=== PATIENT | female | born 1985 | race Caucasian/White ===

== ENCOUNTER → 2020-05-13 | Outpatient (CLI) | payer OTHER ==
[~2020-05-13] MED LIST: ASCO500 PO; CEPH500 PO; DICLEGIS DR 101 EAC1 PO; HYDACE5 PO; METF500 PO; PENVK500 PO; PRENATAL TABLE1 EAC2 PO; Percocet 5-3251 EACH PO; RXHYDACE PO; SERT100 PO; THERA-D2000 UNIT PO
== END | disposition home or self-care (01) ==
LOC: LAB SHORT 16:29 → LAB 16:29
DX: R82.90 Unspecified abnormal findings in urine (principal)
CPT/HCPCS: 87086

== ENCOUNTER 2020-09-24 13:20 | Observation (INO) | payer OTHER ==
[~2020-09-24] VITALS: Ht 167.6 cm; Wt 130.0 kg
[2020-09-24 13:51] LABS: Source, Urine Clean Catch
[2020-09-24 14:12] LABS: Appearance, Urine Clear (Clear); Bilirubin, Urine Neg (Neg); Blood, Urine 5+ (Neg); Color, Urine Yellow (P-Yellow); Glucose Qualitative, Urine Neg (Neg); Ketones, Urine 4+ (Neg); Leukocyte Esterase, Urine 2+ (Neg); Nitrite, Urine Neg (Neg); Protein, Urine 1+ (Neg); Urobilinogen, Urine NORM (Normal)
[2020-09-24 14:21] LABS: Bacteria Mod /hpf; Red Blood Cells, Urine TNTC /hpf (0-2); Squamous Epithelial Cells Few /hpf (Few)
[2020-09-24 15:24] LABS: BASOPHILS ABSOLUTE AUTO 0.04 K/mm3 (0.00-0.23); BASOPHILS PERCENT AUTO 0 % (0-2); EOSINOPHILS ABSOLUTE AUTO 0.02 K/mm3 (0.00-0.68); EOSINOPHILS PERCENT AUTO 0 % (0-6); Hematocrit 36.4 % (33.0-51.0); Hemoglobin 12.3 g/dL (11.5-16.0); IMMATURE GRAN ABSOLUTE AUTO 0.06 K/mm3 (0.00-0.10); IMMATURE GRAN PERCENT AUTO 0 % (0-1); LYMPHOCYTES ABSOLUTE AUTO 1.61 K/mm3 (0.84-5.20); LYMPHOCYTES PERCENT AUTO 10 % (21-46); MONOCYTES ABSOLUTE AUTO 0.67 K/mm3 (0.16-1.47); MONOCYTES PERCENT AUTO 4 % (4-13); Mean Corpuscular HGB 30.1 pg (26.0-34.0); Mean Corpuscular HGB Conc 33.8 g/dL (31.5-36.5); Mean Corpuscular Volume 89 fL (80-100); Mean Platelet Volume 11.8 fL (9.1-12.4); NEUTROPHILS ABSOLUTE AUTO 13.75 K/mm3 (1.96-9.15); NEUTROPHILS PERCENT AUTO 85 % (41-73); Platelet Count 207 K/mm3 (150-400); RDW Coefficient Variation 12.8 % (11.7-14.2); RDW Standard Deviation 41.9 fL (35.1-46.3); Red Blood Cell Count 4.08 M/mm3 (3.80-5.20); White Blood Cell Count 16.15 K/mm3 (4.00-11.30)
[2020-09-24 15:48] LABS: Alanine Aminotransfer (ALT/SGP 53 U/L (12-78); Albumin, Blood 2.6 g/dL (3.4-5.0); Albumin/Globulin Ratio 0.6 (0.8-1.8); Alk Phos 93 U/L (50-136); Anion Gap 10 mmol/L (6-16); Aspartate Aminotrans (AST/SGOT 32 U/L (12-37); Bilirubin, Total 0.3 mg/dL (0.1-1.0); Blood Urea Nitrogen 9 mg/dL (8-24); CO2, Blood 21 mmol/L (21-32); Calcium, Blood 8.7 mg/dL (8.5-10.1); Chloride, Blood 105 mmol/L (98-108); Globulin, Blood 4.4 g/dL (2.2-4.0); Glomerular Filtration Rate >60 (60-); Glucose, Blood 143 mg/dL (70-99); Potassium, Blood 3.4 mmol/L (3.5-5.5); Sodium, Blood 136 mmol/L (136-145)
--- NOTE | 2020-09-25 10:25 | NUR ---
pt sleeping after receiving zofran then phenergan for persistent nausea, no emesis. Pt drank milk and had a couple bites of sausage for breakfast
--- NOTE | 2020-09-25 12:15 | NUR ---
INITIAL VISIT. PT IS ADMITTED TO [facility] AN OBSERVATION PATIENT. WAS ABLE TO HAVE SWEET SUCCESS VISIT IN PT'S ROOM. TALKED W/ PT ABOUT WHAT GESTATIONAL DIABETIES (GD) IS, HOW TO MANAGE GD WITH DIET, WHAT THE TARGET OF CBG IS FOR FASTING AND AFTER MEALS. TALKED WITH PT ABOUT THE IMPORTANCE OF MAINTAINING CBG IN TARGET RANGE AND THE EEFECTS OF HIGH BLOOD SUGARS ON , , AND . PT STATES SHE HAS HAD GD W/ EACH , FIRST SHE HAD TO TO USE INSULIN, SECOND WAS DIET CONTROLLED SHE HAD TO USE INSULIN, SECOND WAS DIET CONTROLLED. SCHEDULED A SECOND VISIT FOR 10-02-20 AT 1400. PT REPORTS FASTING CBG "HAS BEEN AROUND 120" AND AFTER MEALS HAS BEEN "ANYWHERE FROM 87-189". PT WAS GIVEN A LOG TO CHART ALL CBG AND WHAT SHE EATS DURING THE DAY. PT VERBALIZED UNDERSTANDING OF GD AND THE PLAN GOING FORWARD.
--- NOTE | 2020-09-25 12:30 | NUR ---
PATIENT SLEEPING SOUNDLY
--- NOTE | 2020-09-26 10:20 | NUR ---
kenneth solis in room with pt discussed plan to go to all oral medication and manage this at home. pt agreeable. scrips given for roxicodone, promethiazine, and zofran
--- NOTE | 2020-09-26 11:53 | NUR ---
at 1052 pt given discharge instructions, denies any further concerns or questions, vital and fht's all wnl
== END 2020-09-26 11:25 | disposition home or self-care (01) ==
LOC: OBS 13:20 → BC 13:20 → OBS 18:35 → BC 18:36
PROVIDERS: ADMIT Nurse Practitioner Obstetrics & Gynecology
DX: O26.833 Pregnancy related renal disease, third trimester (principal); N20.0 Calculus of kidney; O09.523 Supervision of elderly multigravida, third trimester; O24.415 Gestational diabetes mellitus in pregnancy, controlled by oral hypoglycemic drugs; O99.213 Obesity complicating pregnancy, third trimester; E66.01 Morbid (severe) obesity due to excess calories; Z3A.33 33 weeks gestation of pregnancy; Z87.442 Personal history of urinary calculi; Z79.84 Long term (current) use of oral hypoglycemic drugs; Z88.6 Allergy status to analgesic agent
CPT/HCPCS: 59025; 76770; 80053; 81001; 82947; 85025; 87086; 96365; 96366; 96372; 96375; 96376; 99214; A9270; G0108; J0696; J2405; J2550; J3010; J7120

== ENCOUNTER → 2020-10-22 | Outpatient (CLI) | payer OTHER | END | disposition home or self-care (01) | LOC: LAB 16:36 → LAB SHORT 16:36 | DX: Z34.83 Encounter for supervision of other normal pregnancy, third trimester (principal); Z3A.37 37 weeks gestation of pregnancy | CPT/HCPCS: 87081; 87150 ==

== ENCOUNTER 2020-11-06 10:35 | Inpatient (IN) | payer OTHER ==
[~2020-11-06] VITALS: Ht 167.6 cm; Wt 129.0 kg
[2020-11-06] MEDS ORDERED: OXYC5 PO (11:22)
[2020-11-06] MEDS ORDERED: OMEP20ER PO (11:22)
[2020-11-06] MEDS ORDERED: PROM12.5S PR (11:23)
[2020-11-06] MEDS ORDERED: ONDA4 PO (11:24)
[2020-11-06] MEDS ORDERED: GLYB2.5 PO (11:24)
[2020-11-06 11:34] LABS: BASOPHILS ABSOLUTE AUTO 0.03 K/mm3 (0.00-0.23); BASOPHILS PERCENT AUTO 0 % (0-2); EOSINOPHILS ABSOLUTE AUTO 0.09 K/mm3 (0.00-0.68); EOSINOPHILS PERCENT AUTO 1 % (0-6); Hematocrit 36.1 % (33.0-51.0); Hemoglobin 12.1 g/dL (11.5-16.0); IMMATURE GRAN ABSOLUTE AUTO 0.11 K/mm3 (0.00-0.10); IMMATURE GRAN PERCENT AUTO 1 % (0-1); LYMPHOCYTES ABSOLUTE AUTO 3.05 K/mm3 (0.84-5.20); LYMPHOCYTES PERCENT AUTO 21 % (21-46); MONOCYTES ABSOLUTE AUTO 0.82 K/mm3 (0.16-1.47); MONOCYTES PERCENT AUTO 6 % (4-13); Mean Corpuscular HGB 30.3 pg (26.0-34.0); Mean Corpuscular HGB Conc 33.5 g/dL (31.5-36.5); Mean Corpuscular Volume 90 fL (80-100); Mean Platelet Volume 11.8 fL (9.1-12.4); NEUTROPHILS ABSOLUTE AUTO 10.43 K/mm3 (1.96-9.15); NEUTROPHILS PERCENT AUTO 72 % (41-73); Platelet Count 182 K/mm3 (150-400); RDW Coefficient Variation 13.2 % (11.7-14.2); RDW Standard Deviation 43.3 fL (35.1-46.3); White Blood Cell Count 14.53 K/mm3 (4.00-11.30)
[2020-11-06 12:36] LABS: SARS-Cov-2 (COVID-19) PCR, MMC NEGATIVE (NEGATIVE)
--- NOTE | 2020-11-06 16:12 | NUR ---
11/06/20 1612 Johanna Pagan [id number] PT ARRIVED TO [facility] OR VIA BED WITH DUONG DRAINING CLEAR YELLOW URINE
[2020-11-06 16:30] LABS: PCO2 Cord - Arterial 100 mmHg (40-50); pH Cord - Arterial 6.99 (7.28-7.35)
[2020-11-06 16:36] LABS: PCO2 Cord - Venous 67.9 mmHg (40-50); PO2 Cord - Venous 22.2 mmHg (28-32); pH Umbilical Cord - Venous 7.12 (7.26-7.35)
[2020-11-07 06:24] LABS: BASOPHILS ABSOLUTE AUTO 0.02 K/mm3 (0.00-0.23); BASOPHILS PERCENT AUTO 0 % (0-2); EOSINOPHILS ABSOLUTE AUTO 0.06 K/mm3 (0.00-0.68); EOSINOPHILS PERCENT AUTO 0 % (0-6); Hematocrit 31.9 % (33.0-51.0); Hemoglobin 10.5 g/dL (11.5-16.0); IMMATURE GRAN ABSOLUTE AUTO 0.09 K/mm3 (0.00-0.10); IMMATURE GRAN PERCENT AUTO 1 % (0-1); LYMPHOCYTES ABSOLUTE AUTO 3.45 K/mm3 (0.84-5.20); LYMPHOCYTES PERCENT AUTO 23 % (21-46); MONOCYTES ABSOLUTE AUTO 1.07 K/mm3 (0.16-1.47); MONOCYTES PERCENT AUTO 7 % (4-13); Mean Corpuscular HGB 30.2 pg (26.0-34.0); Mean Corpuscular HGB Conc 32.9 g/dL (31.5-36.5); Mean Corpuscular Volume 92 fL (80-100); Mean Platelet Volume 11.5 fL (9.1-12.4); NEUTROPHILS ABSOLUTE AUTO 10.52 K/mm3 (1.96-9.15); NEUTROPHILS PERCENT AUTO 69 % (41-73); Platelet Count 171 K/mm3 (150-400); RDW Coefficient Variation 13.2 % (11.7-14.2); RDW Standard Deviation 43.9 fL (35.1-46.3); Red Blood Cell Count 3.48 M/mm3 (3.80-5.20); White Blood Cell Count 15.21 K/mm3 (4.00-11.30)
[2020-11-08] MEDS ORDERED: Percocet 5-3251 EACH PO (07:28)
[2020-11-08] MEDS ORDERED: IBUP800 PO (07:28)
--- NOTE | 2020-11-08 11:46 | NUR ---
EDUCATED PT THAT SHE NEEDS TO BE UP AND MOVING, AMBULATING AT LEAST IN ROOM, IF NOT IN HALLWAY. PT ALSO STATES SHE WANTS TO BE . PUMP OBTAINED AND SET UP FOR HER IN ROOM. EXPLAINED AND ANSWERED ALL QUESTIONS. PT DOES HAVE PUMP IN HUSBANDS CAR, WHO IS AT [facility] WITH NB.
--- NOTE | 2020-11-08 14:02 | NUR ---
PT PUMPED BOTH BREASTS WITH RESULT OF 50ML COLOSTRUM. COLOSTRUM OBTAINED AND PLACED IN STORAGE BAG WITH DATE AND TIME, INSTRUMENTS CLEANED. COLOSTRUM PLACED IN NURSERY FRIDGE BY OBYD WILCOX.
--- NOTE | 2020-11-08 16:48 | NUR ---
DISCHARGED TO HOME WITH VIA AMBULATION
--- NOTE | 2020-11-10 09:03 | NUR ---
PT SCHEDULED FOR PPFU, VIA PHONE. PT DID NOT ANSWER, LEFT MESSAGE ON VOICEMAIL.
== END 2020-11-08 16:43 | disposition home or self-care (01) | DRG 788 ==
LOC: OBS 10:35 → BC 10:35 → OBS 11:01 → BC 11:02
PROVIDERS: ADMIT Obstetrics & Gynecology
PROC: 10D00Z1 Extraction of Products of Conception, Low, Open Approach (ICD-10-PCS; principal; 2020-11-06 19:30)
PROC: 0U910ZZ Drainage of Left Ovary, Open Approach (ICD-10-PCS; 2020-11-06 19:30)
DX: O42.92 Full-term premature rupture of membranes, unspecified as to length of time between rupture and onset of labor (principal); Z37.0 Single live birth; O66.3 Obstructed labor due to other abnormalities of fetus; O34.83 Maternal care for other abnormalities of pelvic organs, third trimester; O24.429 Gestational diabetes mellitus in childbirth, unspecified control; N83.202 Unspecified ovarian cyst, left side; O76 Abnormality in fetal heart rate and rhythm complicating labor and delivery; Z3A.39 39 weeks gestation of pregnancy
CPT/HCPCS: 36415; 59025; 82803; 82947; 85025; 86850; 86900; 86901; 88307; 99214; A9270; J0690; J1885; J2405; J2590; J2765; J3010; J7120; U0004

== ENCOUNTER 2022-08-19 09:09 | Emergency (ER) | payer OTHER ==
[~2022-08-19] VITALS: Ht 167.6 cm; Wt 158.8 kg
[~2022-08-19 09:09] MED LIST changes: +GLYB2.5 PO; +IBUP800 PO; +OMEP20ER PO; +ONDA4 PO; +OXYC5 PO; +PROM12.5S PR
[2022-08-19 10:04] LABS: BASOPHILS ABSOLUTE AUTO 0.04 K/mm3 (0.00-0.23); BASOPHILS PERCENT AUTO 0 % (0-2); EOSINOPHILS ABSOLUTE AUTO 0.04 K/mm3 (0.00-0.68); EOSINOPHILS PERCENT AUTO 0 % (0-6); Hematocrit 43.1 % (33.0-51.0); Hemoglobin 14.7 g/dL (11.5-16.0); IMMATURE GRAN ABSOLUTE AUTO 0.05 K/mm3 (0.00-0.10); IMMATURE GRAN PERCENT AUTO 0 % (0-1); LYMPHOCYTES ABSOLUTE AUTO 2.11 K/mm3 (0.84-5.20); LYMPHOCYTES PERCENT AUTO 18 % (21-46); MONOCYTES ABSOLUTE AUTO 0.53 K/mm3 (0.16-1.47); MONOCYTES PERCENT AUTO 5 % (4-13); Mean Corpuscular HGB Conc 34.1 g/dL (31.5-36.5); Mean Corpuscular Volume 88 fL (80-100); NEUTROPHILS ABSOLUTE AUTO 8.78 K/mm3 (1.96-9.15); NEUTROPHILS PERCENT AUTO 76 % (41-73); Platelet Count 263 K/mm3 (150-400); RDW Coefficient Variation 12.7 % (11.7-14.2); RDW Standard Deviation 41.1 fL (35.1-46.3); White Blood Cell Count 11.55 K/mm3 (4.00-11.30)
[2022-08-19 10:31] LABS: Albumin, Blood 3.4 g/dL (3.4-5.0); Albumin/Globulin Ratio 0.8 (0.8-1.8); Bilirubin, Total 0.6 mg/dL (0.1-1.0); Bun/Creatinine Ratio 20.7 (12.0-20.0); Calcium, Blood 8.8 mg/dL (8.5-10.1); Creatinine, Blood 0.53 mg/dL (0.40-1.00); Globulin, Blood 4.4 g/dL (2.2-4.0); Potassium, Blood 3.9 mmol/L (3.5-5.5); Total Protein, Blood 7.8 g/dL (6.4-8.2)
[2022-08-19 12:06] LABS: Source, Urine Clean Catch
[2022-08-19 12:09] LABS: Appearance, Urine Hazy (Clear); Bilirubin, Urine Neg (Neg); Blood, Urine 5+ (Neg); Color, Urine Yellow (P-Yellow); Glucose Qualitative, Urine 4+ (Neg); Ketones, Urine 3+ (Neg); Leukocyte Esterase, Urine 1+ (Neg); Nitrite, Urine Neg (Neg); Protein, Urine 1+ (Neg); Urobilinogen, Urine NORM (Normal)
[2022-08-19 13:05] LABS: Bacteria Rare /hpf; Mucus Light (0-Heavy); Red Blood Cells, Urine 50-100 /hpf (0-2); Squamous Epithelial Cells Few /hpf (Few)
[2022-08-19] MEDS ORDERED: HYDR1TAB94 PO (13:31)
[2022-08-19] MEDS ORDERED: IBUP600 PO (13:31)
[2022-08-19] MEDS ORDERED: ONDA4ODT MM (13:31)
[2022-08-19] MEDS ORDERED: TAMS.4ER PO (13:31)
[2022-08-19 13:40] VITALS: BP 129/79
== END 2022-08-19 13:40 | disposition home or self-care (01) ==
LOC: ER 09:09
PROVIDERS: Physician Assistant
DX: N13.2 Hydronephrosis with renal and ureteral calculous obstruction (principal); Z87.891 Personal history of nicotine dependence
CPT/HCPCS: 74176; 80053; 81001; 81025; 83690; 85025; 96374; 96375; 96376; 99284-25; J1885; J2270; J2405; J7030

== ENCOUNTER → 2024-06-06 | Outpatient (CLI) | payer OTHER ==
[~2024-06-06] MED LIST changes: +HYDR1TAB94 PO; +IBUP600 PO; +ONDA4ODT MM; +TAMS.4ER PO
[2024-06-06 15:52] LABS: BASOPHILS ABSOLUTE AUTO 0.04 K/mm3 (0.00-0.23); BASOPHILS PERCENT AUTO 0 % (0-2); EOSINOPHILS ABSOLUTE AUTO 0.17 K/mm3 (0.00-0.68); EOSINOPHILS PERCENT AUTO 2 % (0-6); Hematocrit 45.8 % (33.0-51.0); Hemoglobin 15.3 g/dL (11.5-16.0); IMMATURE GRAN ABSOLUTE AUTO 0.03 K/mm3 (0.00-0.10); IMMATURE GRAN PERCENT AUTO 0 % (0-1); LYMPHOCYTES ABSOLUTE AUTO 4.11 K/mm3 (0.84-5.20); LYMPHOCYTES PERCENT AUTO 38 % (21-46); MONOCYTES ABSOLUTE AUTO 0.65 K/mm3 (0.16-1.47); MONOCYTES PERCENT AUTO 6 % (4-13); Mean Corpuscular HGB 29.6 pg (26.0-34.0); Mean Corpuscular HGB Conc 33.4 g/dL (31.5-36.5); Mean Corpuscular Volume 89 fL (80-100); Mean Platelet Volume 10.1 fL (9.1-12.4); NEUTROPHILS ABSOLUTE AUTO 5.85 K/mm3 (1.96-9.15); NEUTROPHILS PERCENT AUTO 54 % (41-73); Platelet Count 262 K/mm3 (150-400); RDW Coefficient Variation 12.4 % (11.7-14.2); RDW Standard Deviation 40.1 fL (35.1-46.3); Red Blood Cell Count 5.17 M/mm3 (3.80-5.20); White Blood Cell Count 10.85 K/mm3 (4.00-11.30)
[2024-06-06 16:03] LABS: Albumin, Blood 3.6 g/dL (3.4-5.0); Albumin/Globulin Ratio 0.8 (0.8-1.8); Bilirubin, Total 0.4 mg/dL (0.1-1.0); Bun/Creatinine Ratio 15.5 (12.0-20.0); Calcium, Blood 8.8 mg/dL (8.5-10.1); Creatinine, Blood 0.84 mg/dL (0.40-1.00); Globulin, Blood 4.4 g/dL (2.2-4.0)
== END ==
LOC: LAB SHORT 15:49 → LAB 15:49
PROVIDERS: Physician Assistant
DX: R10.9 Unspecified abdominal pain (principal)
CPT/HCPCS: 80053; 85025